=== PATIENT | female | born 2000 | race Two or more races ===

== ENCOUNTER 2020-01-19 23:33 | Emergency (ER) | payer BC ==
[~2020-01-19] VITALS: Ht 160 cm; Wt 63.5 kg
[2020-01-19 23:50] VITALS: BP 90/50
[2020-01-20] MEDS ORDERED: Bactrim-DS 1 tab ORAL ONE
[2020-01-20] MEDS ORDERED: Neosporin Oint Ud Pkt TOPIC ONE
[2020-01-20] MEDS ORDERED: BACTRIM DS TAB1 EAC1 ORAL (00:03)
[2020-01-20] MEDS ORDERED: MUPIROCIN22 GM TOPIC (00:03)
--- NOTE | 2020-01-20 00:04 | Emergency Room Report ---
History of Present Illness General Chief Complaint: Skin Rash/Abscess Source: Patient Present Illness HPI This a 19-year-old female with no past medical history she presents with chief complaint of rash. For the last for 5 days she noticed these redness and lesion to her body. She has 1 on her right index finger. There is some on her extremities. Itching. Some of have drainage. No fever chills or she been traveling a lot. Pain with movement. No other complaint. Never had this problem before. Allergies: Coded Allergies: No Known Allergies (Unverified , 01/19/20) COVID-19 Screening Contact w/high risk pt: No Experienced COVID-19 symptoms?: No COVID-19 Testing performed ARBORIST: No Patient History Past Medical History: see triage record, old chart reviewed Past Surgical History: none Pertinent Family History: none Social History: Denies: smoking Now: No Immunizations: other Reviewed Nursing Documentation: PMH: Agreed; PSxH: Agreed Nursing Documentation-PMH Past Medical History: No Stated History Review of Systems Eye: Denies: eye pain, blurred vision ENT: Denies: ear pain, nose congestion, throat swelling Respiratory: Denies: cough, shortness of breath Cardiovascular: Denies: chest pain, palpitations Gastrointestinal: Denies: abdominal pain, diarrhea, nausea, vomiting Musculoskeletal: Denies: back pain, joint pain Skin: Denies: rash Neurological: Denies: headache, numbness Endocrine: Denies: increased thirst, increased urine Hematologic/Lymphatic: Denies: easy bruising All Other Systems: negative except mentioned in HPI Physical Exam Vital Signs Date Time Temp Pulse Resp B/P (MAP) Pulse Ox O2 Delivery O2 Flow Rate FiO2 01/19/20 23:43 98.8 109 16 90/50 (63) 98 Room Air Vitals with tachycardia Sp02 EP Interpretation: reviewed, normal General Appearance: well appearing, no apparent distress, alert Head: normocephalic, atraumatic Eyes: bilateral eye PERRL, bilateral eye EOMI ENT: hearing grossly normal, normal pharynx Neck: full range of motion, supple, no meningismus Respiratory: chest non-tender, lungs clear, normal breath sounds Cardiovascular #1: regular rate, rhythm, no murmur Gastrointestinal: normal bowel sounds, non tender, no mass, no organomegaly, no bruit, non-distended Musculoskeletal: back normal, normal range of motion, gait/station normal, other - On her right index finger there is a 3 mm abscess over the PIP joint area. Full range of motion of finger however. He has surrounding erythema. Tender to palpation. There is also a lesion over the anterior aspect of her left ankle. There is dried and scabbed over. There is some redness however. There is also one on her right thigh. There is one on her left elbow also. Psychiatric: mood/affect normal Procedures Incision and Drainage Incision and Drainage : Consent: Verbal Site: Right index finger Blade Size: 11 I & D Procedure: betadine prep Wound Location: upper extremity Wound's Depth, Shape: superficial Patient Tolerated: Well Complications: None Progress Area cleaned with Betadine. I made a small stab incision over the necrotic s kin. There is scant amount of pus expressed. Patient taught a procedure without any problem. Medical Decision Making Diagnostic Impression: Primary Impression: Abscess ER Course This patient presents with superficial abscess on her body. Most likely MRSA. No deep infection. Will discharge home after giving a dose of antibiotics here. Last Vital Signs Date Time Temp Pulse Resp B/P (MAP) Pulse Ox O2 Delivery O2 Flow Rate FiO2 01/19/20 23:43 98.8 109 16 90/50 (63) 98 Room Air Status: improved Disposition: HOME, SELF-CARE Condition: Stable Scripts Mupirocin* (MUPIROCIN*) 22 Gm Oint...g. 1 APPLIC TOPIC THREE TIMES A DAY, #22 GM Prov: Cristobal Jaime MD 01/20/20 Trimethoprim/Sulfamethoxazole 160/800* (BACTRIM DS TABLET*) 1 Each Tablet 1 TAB ORAL Q12H, #14 TAB 0 Refills Prov: Cristobal Jaime MD 01/20/20 Patient Instructions: Abscess Additional Instructions: Keep wound clean. Clean first with hydroperoxide and apply antibiotic ointment. Follow-up with your doctor in 2-3 days for recheck if not better. Return if symptoms worsen. Cristobal Jaime MD Jan 20, 2020 00:04
[2020-01-20 00:10] VITALS: BP 102/65
== END 2020-01-20 00:10 | disposition home or self-care (01) ==
LOC: EMR 23:59
DX: L02.511 Cutaneous abscess of right hand (principal)
CPT/HCPCS: 99283